=== PATIENT | female | born 1970 | race Two or more races ===

== ENCOUNTER 2025-02-11 07:46 | Emergency (ER) | payer MEDICARE, OTHER ==
[~2025-02-11] VITALS: Ht 177.8 cm; Wt 155.0 kg
[2025-02-11 08:04] VITALS: O2SAT 100
[2025-02-11 08:32] LABS: CLARITY URINE CLEAR (CLEAR); COLOR URINE DARK YELLOW (YELLOW); GLUCOSE URINE NEGATIVE (NEGATIVE); KETONES URINE NEGATIVE (NEGATIVE); LEUKOCYTE ESTERASE URINE TRACE (NEGATIVE); NITRITE URINE POSITIVE (NEGATIVE); OCCULT BLOOD URINE 1+ (NEGATIVE); PH URINE 6.0 (4.5-8.0); PROTEIN URINE 1+ (NEGATIVE); SPECIFIC GRAVITY URINE 1.014 (1.005-1.030); UROBILINOGEN URINE 1.0 E.U./dL (0.2-1.0)
[2025-02-11] MEDS ORDERED: CEPH500C2 MT (08:40)
[2025-02-11 08:43] LABS: WBC URINE 15-25 /hpf (0-2)
[2025-02-11 08:46] LABS: BACTERIA URINE 2+; SQUAMOUS EPITHELIAL CELL URINE 2+ /lpf (RARE/1+)
[2025-02-11 08:47] LABS: YEAST URINE 1+
[2025-02-11] MEDS: CEFTRIAXONE SODIUM 1G VIAL IM ONE (09:00)
[2025-02-11] MEDS: LIDOCAINE HCL 1% 20ML VIAL INFIL ONE (09:01)
[2025-02-11 09:07] VITALS: BP 170/90; PULSE 99; RESP 18; TEMP 36.9; O2SAT 100
== END 2025-02-11 09:08 | disposition home or self-care (01) ==
LOC: ER 07:46
DX: N10 Acute pyelonephritis (principal); E11.9 Type 2 diabetes mellitus without complications; E78.00 Pure hypercholesterolemia, unspecified; G47.30 Sleep apnea, unspecified; I10 Essential (primary) hypertension; J45.909 Unspecified asthma, uncomplicated; Z86.718 Personal history of other venous thrombosis and embolism; Z87.440 Personal history of urinary (tract) infections; Z88.5 Allergy status to narcotic agent
CPT/HCPCS: 81003; 81025; 87086; 87186; 87077; 96372; 99283; J0696; J2003; Z7610